=== PATIENT | male | born 1960 | race Hispanic/Latino ===

== ENCOUNTER 2017-05-26 15:27 | Emergency (ER) | payer OTHER ==
[2017-05-26] MEDS ORDERED: EPINEPHrine 1 MG/10 ML SYR IV ONE (15:28)
[2017-05-26] MEDS ORDERED: SODIUM CHL 0.9% 1000 ML BAG IV ONE (15:28)
[2017-05-26] MEDS ORDERED: Caclcium Chloride 10% INJ SYR IV ONE (15:28)
--- OUTSIDE RECORDS SUMMARY | 2017-05-26 15:29 | XMS REPORT ---
:1960 [facility] Address [address] [place] [address] Dr. Gallo [address] [place] [id number] Care Team Providers Name Role Phone AGNES VALDOVINOS Unavailable Unavailable Problems This patient has no known problems. Allergies, Adverse Reactions, Alerts This patient has no known allergies or adverse reactions. Medications This patient has no known medications. Results Test Description Test Time Test Comments Text Results Atomic Results Result Comments BLOOD CULTURE 2016-11-10 18:00:00 Test Item Value Reference Range Comments CULTURE (BEAKER) (test aogj=8263) No growth in 5 days BLOOD [id number] 18:00:00 Test Item Value Reference Range Comments CULTURE (BEAKER) (test rrxg=8671) No growth in 5 days URINE [id number] 15:51:00 Test Item Value Reference Range Comments CULTURE (BEAKER) (test upkq=6625) No growth [id number] 07:25:00 Test Item Value Reference Range Comments MAGNESIUM (BEAKER) (test 1.4 mg/dL 1.6-2.6 Specimen slightly hemolyzed qxfx=490) HEPATIC FUNCTION [id number] 07:25:00 Test Item Value Reference Range Comments TOTAL PROTEIN (BEAKER) (test 5.1 gm/dL 6.0-8.3 Specimen slightly hemolyzed wwws=760) ALBUMIN (BEAKER) (test 1.5 g/dL 3.5-5.0 Specimen slightly hemolyzed pyxj=8869) BILIRUBIN TOTAL (BEAKER) (test 2.0 mg/dL 0.2-1.2 Specimen slightly hemolyzed cnxh=465) BILIRUBIN DIRECT (BEAKER) (test 1.1 mg/dL 0.1-0.5 Specimen slightly hemolyzed xnlp=678) ALKALINE PHOSPHATASE (BEAKER) 120 U/L 40-150 (test zsdk=555) AST (SGOT) (BEAKER) (test 59 U/L 5-34 Specimen slightly hemolyzed ifhl=619) ALT (SGPT) (BEAKER) (test 24 U/L 6-55 Specimen slightly hemolyzed bsnl=474) Specimen slightly ictericBASIC METABOLIC [id number] 07:25:00 Test Item Value Reference Range Comments SODIUM (BEAKER) (test 133 meq/L 136-145 yfpi=412) POTASSIUM (BEAKER) (test 4.5 meq/L 3.5-5.1 Specimen slightly xrce=939) hemolyzed CHLORIDE (BEAKER) (test 111 meq/L 98-107 drvo=140) CO2 (BEAKER) (test 16 meq/L 22-29 stro=480) BLOOD UREA NITROGEN 21 mg/dL 7-21 (BEAKER) (test bmqa=194) CREATININE (BEAKER) (test 1.04 mg/dL 0.57-1.25 Specimen slightly tuqt=811) hemolyzed GLUCOSE RANDOM (BEAKER) 77 mg/dL 70-105 (test fxsc=011) CALCIUM (BEAKER) (test 7.8 mg/dL 8.4-10.2 npfz=841) EGFR (BEAKER) (test mL/min/1.73 sq m INSUFFICIENT CLINICAL DATA orxe=4618) TO CALCULATE ESTIMATED GFR. Specimen slightly ictericCBC W/PLT COUNT & AUTO [id number] 05:54 :00 Test Item Value Reference Range Comments WHITE BLOOD CELL COUNT (BEAKER) (test qpbj=330) 7.7 K/ L 3.5-10.5 RED BLOOD CELL COUNT (BEAKER) (test pxwj=644) 2.11 M/ L 4.63-6.08 HEMOGLOBIN (BEAKER) (test tuxz=330) 7.1 GM/DL 13.7-17.5 HEMATOCRIT (BEAKER) (test aqlx=581) 22.9 % 40.1-51.0 MEAN CORPUSCULAR VOLUME (BEAKER) (test fegc=118) 108.5 fL 79.0-92.2 MEAN CORPUSCULAR HEMOGLOBIN (BEAKER) (test 33.6 pg 25.7-32.2 kjpj=365) MEAN CORPUSCULAR HEMOGLOBIN CONC (BEAKER) (test 31.0 GM/DL 32.3-36.5 bvcw=361) RED CELL DISTRIBUTION WIDTH (BEAKER) (test 17.4 % 11.6-14.4 ielj=092) PLATELET COUNT (BEAKER) (test scqf=145) 57 K/CU MM 150-450 MEAN PLATELET VOLUME (BEAKER) (test xzev=066) 11.9 fL 9.4-12.4 NUCLEATED RED BLOOD CELLS (BEAKER) (test 0 /100 WBC 0-0 upoh=144) NEUTROPHILS RELATIVE PERCENT (BEAKER) (test 45 % rkta=051) LYMPHOCYTES RELATIVE PERCENT (BEAKER) (test 36 % hvgz=024) MONOCYTES RELATIVE PERCENT (BEAKER) (test 15 % lttu=389) EOSINOPHILS RELATIVE PERCENT (BEAKER) (test 4 % nrxq=346) BASOPHILS RELATIVE PERCENT (BEAKER) (test 0 % zskz=449) NEUTROPHILS ABSOLUTE COUNT (BEAKER) (test 3.46 K/ L 1.78-5.38 nrul=553) LYMPHOCYTES ABSOLUTE COUNT (BEAKER) (test 2.73 K/ L 1.32-3.57 xtsv=563) MONOCYTES ABSOLUTE COUNT (BEAKER) (test ktmu=841) 1.14 K/ L 0.30-0.82 EOSINOPHILS ABSOLUTE COUNT (BEAKER) (test 0.27 K/ L 0.04-0.54 ghdx=150) BASOPHILS ABSOLUTE COUNT (BEAKER) (test uzmt=724) 0.03 K/ L 0.01-0.08 IMMATURE GRANULOCYTES-RELATIVE PERCENT (BEAKER) 0 % 0-1 (test ihmw=0798) HEMOGLOBIN AND [id number] 05:57:00 Test Item Value Reference Range Comments HEMOGLOBIN (BEAKER) (test ynds=523) 7.2 GM/DL 13.7-17.5 HEMATOCRIT (BEAKER) (test cgbn=211) 23.2 % 40.1-51.0 BASIC METABOLIC [id number] 04:17:00 Test Item Value Reference Range Comments SODIUM (BEAKER) (test 139 meq/L 136-145 mnbx=877) POTASSIUM (BEAKER) (test 3.8 meq/L 3.5-5.1 duqq=054) CHLORIDE (BEAKER) (test 117 meq/L 98-107 siyl=946) CO2 (BEAKER) (test 17 meq/L 22-29 gejh=678) BLOOD UREA NITROGEN 21 mg/dL 7-21 (BEAKER) (test uswy=789) CREATININE (BEAKER) (test 1.02 mg/dL 0.57-1.25 jeet=763) GLUCOSE RANDOM (BEAKER) 94 mg/dL 70-105 (test vvwm=343) CALCIUM (BEAKER) (test 8.0 mg/dL 8.4-10.2 okkw=403) EGFR (BEAKER) (test mL/min/1.73 sq m INSUFFICIENT CLINICAL DATA fjlr=8295) TO CALCULATE ESTIMATED GFR. Specimen slightly ictericHEPATIC FUNCTION [id number] 04:17:00 Test Item Value Reference Range Comments TOTAL PROTEIN (BEAKER) (test pitx=796) 5.2 gm/dL 6.0-8.3 ALBUMIN (BEAKER) (test ddbo=2484) 1.6 g/dL 3.5-5.0 BILIRUBIN TOTAL (BEAKER) (test ysfi=503) 2.3 mg/dL 0.2-1.2 BILIRUBIN DIRECT (BEAKER) (test hdym=162) 1.3 mg/dL 0.1-0.5 ALKALINE PHOSPHATASE (BEAKER) (test xmno=470) 113 U/L 40-150 AST (SGOT) (BEAKER) (test qfzr=776) 52 U/L 5-34 ALT (SGPT) (BEAKER) (test wxcn=320) 22 U/L 6-55 Specimen slightly [id number] 04:15:00 Test Item Value Reference Range Comments PHOSPHORUS (BEAKER) (test frgo=113) 3.8 mg/dL 2.3-4.7 [id number] 04:15:00 Test Item Value Reference Range Comments MAGNESIUM (BEAKER) (test lumd=056) 1.4 mg/dL 1.6-2.6 PROTHROMBIN [id number] 04:08:00 Test Item Value Reference Range Comments PROTIME (BEAKER) (test lwst=858) 21.8 seconds 11.7-14.7 INR (BEAKER) (test iwib=041) 1.9 <=5.9 RECOMMENDED COUMADIN/WARFARIN INR THERAPY RANGESSTANDARD DOSE: 2.0 - 3.0 Includes: PROPHYLAXIS forvenous thrombosis, systemic embolization; TREATMENT for venous thrombosis and/or pulmonary embolus.HIGH RISK: Target INR is 2.5-3.5 for patients with mechanical heart valves.CBC W/PLT COUNT & AUTO [id number] 04:07:00 Test Item Value Reference Range Comments WHITE BLOOD CELL COUNT (BEAKER) (test axoy=779) 6.4 K/ L 3.5-10.5 RED BLOOD CELL COUNT (BEAKER) (test xwxu=355) 2.01 M/ L 4.63-6.08 HEMOGLOBIN (BEAKER) (test apis=741) 6.9 GM/DL 13.7-17.5 HEMATOCRIT (BEAKER) (test oimd=242) 21.2 % 40.1-51.0 MEAN CORPUSCULAR VOLUME (BEAKER) (test djgy=112) 105.5 fL 79.0-92.2 MEAN CORPUSCULAR HEMOGLOBIN (BEAKER) (test 34.3 pg 25.7-32.2 bbqv=822) MEAN CORPUSCULAR HEMOGLOBIN CONC (BEAKER) (test 32.5 GM/DL 32.3-36.5 yueg=602) RED CELL DISTRIBUTION WIDTH (BEAKER) (test 18.1 % 11.6-14.4 xexv=829) PLATELET COUNT (BEAKER) (test fhob=239) 64 K/CU MM 150-450 MEAN PLATELET VOLUME (BEAKER) (test kngg=078) 10.9 fL 9.4-12.4 NUCLEATED RED BLOOD CELLS (BEAKER) (test 0 /100 WBC 0-0 xqtq=976) NEUTROPHILS RELATIVE PERCENT (BEAKER) (test 43 % pyyu=710) LYMPHOCYTES RELATIVE PERCENT (BEAKER) (test 37 % eywv=252) MONOCYTES RELATIVE PERCENT (BEAKER) (test 16 % oywm=830) EOSINOPHILS RELATIVE PERCENT (BEAKER) (test 3 % smci=158) BASOPHILS RELATIVE PERCENT (BEAKER) (test 1 % mnka=076) NEUTROPHILS ABSOLUTE COUNT (BEAKER) (test 2.78 K/ L 1.78-5.38 wkqy=227) LYMPHOCYTES ABSOLUTE COUNT (BEAKER) (test 2.37 K/ L 1.32-3.57 ytpk=510) MONOCYTES ABSOLUTE COUNT (BEAKER) (test kswk=049) 1.05 K/ L 0.30-0.82 EOSINOPHILS ABSOLUTE COUNT (BEAKER) (test 0.19 K/ L 0.04-0.54 sffi=021) BASOPHILS ABSOLUTE COUNT (BEAKER) (test yzbx=512) 0.03 K/ L 0.01-0.08 IMMATURE GRANULOCYTES-RELATIVE PERCENT (BEAKER) 0 % 0-1 (test agyi=9902) HEMOGLOBIN [id number] 16:56:00 Test Item Value Reference Range Comments HEMOGLOBIN A1C (BEAKER) (test rybm=908) < % 4.3-6.1 PROTHROMBIN [id number] 15:22:00 Test Item Value Reference Range Comments PROTIME (BEAKER) (test svto=263) 21.1 seconds 11.7-14.7 INR (BEAKER) (test yzck=825) 1.8 <=5.9 RECOMMENDED COUMADIN/WARFARIN INR THERAPY RANGESSTANDARD DOSE: 2.0 - 3.0 Includes: PROPHYLAXIS forvenous thrombosis, systemic embolization; TREATMENT for venous thrombosis and/or pulmonary embolus.HIGH RISK: Target INR is 2.5-3.5 for patients with mechanical heart valves.BASIC METABOLIC [id number] 14:34: 00 Test Item Value Reference Range Comments SODIUM (BEAKER) (test 138 meq/L 136-145 egzw=463) POTASSIUM (BEAKER) (test 4.6 meq/L 3.5-5.1 fgrr=095) CHLORIDE (BEAKER) (test 116 meq/L 98-107 xzav=731) CO2 (BEAKER) (test 17 meq/L 22-29 ofix=731) BLOOD UREA NITROGEN 22 mg/dL 7-21 (BEAKER) (test fuso=633) CREATININE (BEAKER) (test 1.13 mg/dL 0.57-1.25 ntij=500) GLUCOSE RANDOM (BEAKER) 91 mg/dL 70-105 (test lbot=498) CALCIUM (BEAKER) (test 8.5 mg/dL 8.4-10.2 rcvj=631) EGFR (BEAKER) (test mL/min/1.73 sq m INSUFFICIENT CLINICAL DATA vgeb=6173) TO CALCULATE ESTIMATED GFR. Specimen slightly ictericHEPATIC FUNCTION [id number] 14:34:00 Test Item Value Reference Range Comments TOTAL PROTEIN (BEAKER) (test mizm=433) 6.2 gm/dL 6.0-8.3 ALBUMIN (BEAKER) (test iwkb=0854) 1.8 g/dL 3.5-5.0 BILIRUBIN TOTAL (BEAKER) (test ykrh=156) 2.7 mg/dL 0.2-1.2 BILIRUBIN DIRECT (BEAKER) (test zgkr=450) 1.5 mg/dL 0.1-0.5 ALKALINE PHOSPHATASE (BEAKER) (test hjps=616) 157 U/L 40-150 AST (SGOT) (BEAKER) (test vnxg=309) 59 U/L 5-34 ALT (SGPT) (BEAKER) (test syzt=293) 26 U/L 6-55 Specimen slightly [id number] 14:24:00 Test Item Value Reference Range Comments PHOSPHORUS (BEAKER) (test yhuk=755) 4.4 mg/dL 2.3-4.7 [id number] 14:24:00 Test Item Value Reference Range Comments MAGNESIUM (BEAKER) (test akim=732) 1.6 mg/dL 1.6-2.6 CBC W/PLT COUNT & AUTO [id number] 14:04:00 Test Item Value Reference Range Comments WHITE BLOOD CELL COUNT (BEAKER) (test uzhx=361) 7.0 K/ L 3.5-10.5 RED BLOOD CELL COUNT (BEAKER) (test fknz=766) 2.43 M/ L 4.63-6.08 HEMOGLOBIN (BEAKER) (test mnva=233) 8.2 GM/DL 13.7-17.5 HEMATOCRIT (BEAKER) (test zgcq=559) 25.7 % 40.1-51.0 MEAN CORPUSCULAR VOLUME (BEAKER) (test xgfg=516) 105.8 fL 79.0-92.2 MEAN CORPUSCULAR HEMOGLOBIN (BEAKER) (test 33.7 pg 25.7-32.2 rkij=904) MEAN CORPUSCULAR HEMOGLOBIN CONC (BEAKER) (test 31.9 GM/DL 32.3-36.5 sihs=085) RED CELL DISTRIBUTION WIDTH (BEAKER) (test 17.9 % 11.6-14.4 gtpp=093) PLATELET COUNT (BEAKER) (test lfal=190) 75 K/CU MM 150-450 MEAN PLATELET VOLUME (BEAKER) (test iadr=213) 11.7 fL 9.4-12.4 NUCLEATED RED BLOOD CELLS (BEAKER) (test 0 /100 WBC 0-0 fylf=268) NEUTROPHILS RELATIVE PERCENT (BEAKER) (test 56 % ugmw=543) LYMPHOCYTES RELATIVE PERCENT (BEAKER) (test 30 % rhiv=092) MONOCYTES RELATIVE PERCENT (BEAKER) (test 11 % nnwt=518) EOSINOPHILS RELATIVE PERCENT (BEAKER) (test 2 % mhsh=143) BASOPHILS RELATIVE PERCENT (BEAKER) (test 0 % wemc=593) NEUTROPHILS ABSOLUTE COUNT (BEAKER) (test 3.95 K/ L 1.78-5.38 fzfx=400) LYMPHOCYTES ABSOLUTE COUNT (BEAKER) (test 2.13 K/ L 1.32-3.57 yrej=010) MONOCYTES ABSOLUTE COUNT (BEAKER) (test yeyh=006) 0.76 K/ L 0.30-0.82 EOSINOPHILS ABSOLUTE COUNT (BEAKER) (test 0.15 K/ L 0.04-0.54 lfcu=044) BASOPHILS ABSOLUTE COUNT (BEAKER) (test kxgx=035) 0.02 K/ L 0.01-0.08 IMMATURE GRANULOCYTES-RELATIVE PERCENT (BEAKER) 0 % 0-1 (test vxsn=5099)
[2017-05-26] MEDS ORDERED: RSI MEDICATION KIT IV ONE (15:34)
--- NOTE | 2017-05-26 17:20 | EDPHYS ---
Physician Documentation [facility] Name: Edouard Bear Age: 57 yrs Sex: Male : 1960 Arrival Date: 05/26/2017 Time: 15:33 Bed 2 Private MD: ED Physician Bety Wallace HPI: 05/26 16:36 This 57 yrs old Male presents to ER via EMS with complaints of CPR. jr8 16:36 Preceding the arrest, the patient collapsed. The arrest occurred at home. Pre-hospital jr8 course: The arrest was witnessed by EMS. EMS care prior to arrival: initiation of ACLS, peripheral IV, was successfully placed. intubation was successfully performed, oxygen, by BVM to assist ventilations. 100% by ET tube. ACLS details: Initial rhythm was PEA. The presenting rhythm is PEA. Airway: Ambu assist ventilation, oral intubation, Medications given by EMS prior to arrival - Epinephrine IV x 4 doses, Response to therapy: continued arrest. The patient has not experienced similar symptoms in the past. The patient has not recently seen a physician. Family stated that he was walking home from friends. Had collapsed outside. EMS stated faint pulse upon arrival but unresponsive. Lost pulse shortly after. CPR immediately began by EMS with ACLS protocol initiated . Historical: - Allergies: 15:50 olive oil; sv - PMHx: 15:50 Alcoholism; Cirrhosis; Depression; Hypertension; sv - PSHx: 15:50 eye surg; sv - Immunization history:: Adult Immunizations unknown. - Social history:: Smoking status: unknown. ROS: 16:36 Unable to obtain ROS due to CPR. jr8 Exam: 16:36 Head/Face: Normocephalic, atraumatic. Eyes: Pupils size 4 fixed dilated bilaterally jr8 ENT: Nares patent. No nasal discharge, no septal abnormalities noted. Oropharynx with no redness, swelling, or masses, exudates, or evidence of obstruction, uvula midline. Mucous membranes moist. Neck: Trachea midline, no thyromegaly or masses palpated, and no cervical lymphadenopathy. Supple, full range of motion Chest/axilla: Normal chest wall appearance and motion. Cardiovascular: PEA rhythm. No pulses present Respiratory: Lungs have equal breath sounds bilaterally via BVM ventilation. No adventitious breath sounds auscultated Abdomen/GI: Soft. No distension Skin: Warm, dry with normal turgor. Normal color with no rashes, no lesions, and no evidence of cellulitis. 17:14 Neuro: GCS 3T. Cardiac arrest. No involuntary or voluntary neuromuscular response jr8 Vital Signs: 15:30 Pulse 0 MON; Resp 14 A; sv 15:35 Pulse 0; Resp 14 A; sv 15:36 Pulse 0; Resp 14 A; sv 15:49 Temp 99.3(R); sv 15:30 PEA sv 15:35 PEA sv 15:36 PEA sv 15:30 Pulse check, PEA, no pulse, CPR resumed. sv 15:35 Pulse check, PEA, no pulse, CPR resumed. sv 15:36 Pulse check, PEA, no pulse, CPR resumed. sv Orcas Coma Score: 15:35 Eye Response: none(1). Verbal Response: none(1). Motor Response: none(1). Modifying sv Factors: Intubated. Total: 3. MDM: 15:42 Patient medically screened. jr8 17:14 Data reviewed: vital signs, nurses notes. Data reviewed: EKG. jr8 Administered Medications: 15:28 Drug: EPINEPHrine 0.1mg/mL 1:10,000 1 mg {Note: left leg IO.} Route: IVP; Site: Other; sv 15:45 Follow up: Response: No adverse reaction sv 15:29 Drug: Sodium Bicarbonate 1 amp {Note: left leg IO.} Route: IVP; Site: Other; sv 15:45 Follow up: Response: No adverse reaction sv 15:30 Drug: Calcium Chloride 1 grams {Note: left leg IO.} Route: IVP; Site: Other; sv 15:45 Follow up: Response: No adverse reaction sv 15:32 Drug: EPINEPHrine 0.1mg/mL 1:10,000 1 mg Route: IVP; Site: right wrist; sv 15:45 Follow up: Response: No adverse reaction sv 15:35 Drug: EPINEPHrine 0.1mg/mL 1:10,000 1 mg Route: IVP; Site: right wrist; sv 15:45 Follow up: Response: No adverse reaction sv 15:38 Drug: EPINEPHrine 0.1mg/mL 1:10,000 1 mg Route: IVP; Site: right wrist; sv 15:45 Follow up: Response: No adverse reaction sv Point of Care Testing: Blood Glucose: 15:35 Blood Glucose: 99 mg/dL; sv Ranges: Critical Glucose Levels:Adult <50 mg/dl or >400 mg/dl <40 mg/dl or >180 mg/dl Disposition: 17:14 . jr8 05/27 07:08 Co-signature as Attending Physician, Bety Wallace MD. ma2 Disposition: Patient pronounced on 05/26/17 15:39 by Taye Vera. Impression: Cardiac arrest. - Released to Home. Signatures: Devika José RN RN sv Smirch, Shelby, RN RN Taye Vera, PA PA jr8 Bety Wallace MD MD ma2 Corrections: (The following items were deleted from the chart) 05/26 17:17 16:36 Head/Face: Normocephalic, atraumatic. Eyes: Pupils size 4 fixed dilated jr8 bilaterally ENT: Nares patent. No nasal discharge, no septal abnormalities noted. Tympanic membranes are normal and external auditory canals are clear. Oropharynx with no redness, swelling, or masses, exudates, or evidence of obstruction, uvula midline. Mucous membranes moist. jr8
--- NOTE | 2017-05-26 17:20 | ER ---
Nurse's Notes [facility] Name: Edouard Bear Age: 57 yrs Sex: Male : 1960 Arrival Date: 05/26/2017 Time: 15:33 Bed 2 Private MD: Diagnosis: Cardiac arrest Presentation: 05/26 15:25 Presenting complaint: EMS states: Pt found laying on his front porch unresponsive with sv faint pulse. Placed in EMS truck, no pulse-PEA, CPR started and placed on the Federico. Epinephrine x4, Sodium bicarb x 1 given to left leg IO. BS-119, rectal temp-98.2. Pt intubated, size-7.0, teeth-23, +capnography. Care prior to arrival: Oral intubation, CPR via thumper performed by EMS and is still in progress started about 1502. IV initiated. in the left leg, IO Glucose check: 119. Compressions began at 15:02. 15:25 Method Of Arrival: EMS: [facility] sv 15:25 Acuity: LAYLA 1 sv 15:25 Transition of care: patient was not received from another setting of care. Onset of sv symptoms was May 26, 2017 at 15:02. Historical: - Allergies: 15:50 olive oil; sv - PMHx: 15:50 Alcoholism; Cirrhosis; Depression; Hypertension; sv - PSHx: 15:50 eye surg; sv - Immunization history:: Adult Immunizations unknown. - Social history:: Smoking status: unknown. Screenin:16 Abuse screen: unknown. Nutritional screening: unknown. Tuberculosis screening: unknown. sv Fall Risk. Assessment: 15:27 CPR assessment: unresponsive, no respiratory effort, intubated, Ambu ventilation, sv pulses absent w/ compressions. Cardiac rhythm is PEA. General: Appears distressed, Behavior is unresponsive. Neuro: Level of Consciousness is unresponsive, Oriented to none. Respiratory: Airway via oral intubation. Derm: Skin is jaundiced. 15:39 Reassessment: Taye at bedside with Ultrasound machine to check heart. No pulse. Time of sv 1538. 16:05 Reassessment: Spoke with Yolis Cook with [facility]. Pt is a candidate for eye and sv tissue. Case #[id number]. 16:30 Reassessment: Waiting for [place] [facility] to arrive at our facility per [place] [facility]. sv Vital Signs: 15:30 Pulse 0 MON; Resp 14 A; sv 15:35 Pulse 0; Resp 14 A; sv 15:36 Pulse 0; Resp 14 A; sv 15:49 Temp 99.3(R); sv 15:30 PEA sv 15:35 PEA sv 15:36 PEA sv 15:30 Pulse check, PEA, no pulse, CPR resumed. sv 15:35 Pulse check, PEA, no pulse, CPR resumed. sv 15:36 Pulse check, PEA, no pulse, CPR resumed. sv Miriam Coma Score: 15:35 Eye Response: none(1). Verbal Response: none(1). Motor Response: none(1). Modifying sv Factors: Intubated. Total: 3. ED Course: 15:25 slot attendant on. Pulse ox on. NIBP on. sv 15:30 Arm band placed on right wrist. sv 15:32 Inserted saline lock: 20 gauge in right wrist, using aseptic technique. ,using aseptic sv technique. done by [facility] tech. 15:33 Patient arrived in ED. bd 15:33 Inserted saline lock: 22 gauge in left wrist, using aseptic technique. ,using aseptic sv technique. done by [employer]. 15:35 Patient has correct armband on for positive identification. Bed in low position. sv 15:41 Devika José RN is Primary Nurse. sv 15:42 Taye Vera PA is PHCP. jr8 15:42 Bety Wallace MD is Attending Physician. jr8 15:45 EKG done, by clin tech. reviewed by Taye MASON. at1 15:47 Triage completed. sv 17:19 Taye Vera PA is Pronouncing Provider. jr8 18:51 No provider procedures requiring assistance completed. Patient transferred, IV remains sv in place. intact, Pt sent to [facility]. Administered Medications: 15:28 Drug: EPINEPHrine 0.1mg/mL 1:10,000 1 mg {Note: left leg IO.} Route: IVP; Site: Other; sv 15:45 Follow up: Response: No adverse reaction sv 15:29 Drug: Sodium Bicarbonate 1 amp {Note: left leg IO.} Route: IVP; Site: Other; sv 15:45 Follow up: Response: No adverse reaction sv 15:30 Drug: Calcium Chloride 1 grams {Note: left leg IO.} Route: IVP; Site: Other; sv 15:45 Follow up: Response: No adverse reaction sv 15:32 Drug: EPINEPHrine 0.1mg/mL 1:10,000 1 mg Route: IVP; Site: right wrist; sv 15:45 Follow up: Response: No adverse reaction sv 15:35 Drug: EPINEPHrine 0.1mg/mL 1:10,000 1 mg Route: IVP; Site: right wrist; sv 15:45 Follow up: Response: No adverse reaction sv 15:38 Drug: EPINEPHrine 0.1mg/mL 1:10,000 1 mg Route: IVP; Site: right wrist; sv 15:45 Follow up: Response: No adverse reaction sv Point of Care Testing: Blood Glucose: 15:35 Blood Glucose: 99 mg/dL; sv Ranges: Outcome: 15:39 Outcome Patient sv 18:51 Patient left the ED. ss 18:51 Discharged to [facility] home sv 18:51 Condition: 18:51 Discharge instructions given to home care manager. Signatures: Yue Peterson Stephanie, RN RN Venus Reynoso RN RN ss Taye Vera PA PA jr8 Dionna tarango, director of global sales EKG Tat1 Corrections: (The following items were deleted from the chart) 15:54 15:20 EPINEPHrine 0.1mg/mL 1:10,000 1 mg IVP in Other sv sv 15:55 15:34 EPINEPHrine 0.1mg/mL 1:10,000 1 mg IVP in right wrist sv sv 16:16 15:27 Presenting complaint: EMS states: Pt found laying on his front porch unresponsive sv with faint pulse. Placed in EMS truck, no pulse-PEA, CPR started and placed on the Federico. Epinephrine x4, Sodium bicarb x 1 given to left leg IO. BS-119, rectal temp-98.2. Pt intubated. sv 16:16 15:27 Care prior to arrival: Oral intubation, CPR via thumper performed by EMS and is sv still in progress started about 1502. IV initiated. in the left leg, IO Glucose check: 119 sv 16:16 15:27 Compressions began at 15:02. sv sv 16:16 15:27 Method Of Arrival: EMS: [facility] sv sv 16:16 15:27 Acuity: LAYLA 1 sv sv 16:25 15:25 Presenting complaint: EMS states: Pt found laying on his front porch unresponsive sv with faint pulse. Placed in EMS truck, no pulse-PEA, CPR started and placed on the Federico. Epinephrine x4, Sodium bicarb x 1 given to left leg IO. BS-119, rectal temp-98.2. Pt intubated. sv 20:09 16:05 Reassessment: Spoke with Yolis Cook with [facility]. Pt is a candidate for eye sv and tissue. sv
[2017-05-26 19:12] VITALS: TEMP 99.3
--- NOTE | 2017-05-26 22:30 | EKG ---
Test Date: 2017-05-26 Test Time: 15:38:42 International Marketing Coordinator: AMANDA MEASUREMENT RESULTS: Intervals: Rate: 49 NM: QRSD: 10 QT: 252 QTc: 227 [place]: P: NM: QRS: 0 T: -16 INTERPRETIVE STATEMENTS: Undetermined rhythm likely asystole followed by juntional and ventricular escape complexes Abnormal ECG No previous ECG available for comparison Electronically Signed On 05-26-17 22:29:49 CDT by Celestine Quarles
== END 2017-05-26 18:51 | disposition expired ==
LOC: ER 15:27
PROC: 5A12012 Performance of Cardiac Output, Single, Manual (ICD-10-PCS; principal; 2017-05-26)
DX: I46.9 Cardiac arrest, cause unspecified (principal); I10 Essential (primary) hypertension; Z91.018 Allergy to other foods
CPT/HCPCS: 82962; 92950; 93005; 99285; J0171; J7030